=== PATIENT | female | born 1955 | race Caucasian/White ===

== ENCOUNTER 2020-08-21 18:07 | Observation (INO) | payer MEDICARE, OTHER ==
[~2020-08-21 18:07] MED LIST: Iopamidol-370 76% 500 ML 1 ML ONE
[2020-08-21] MEDS ORDERED: Ketorolac Tromethamine 30 MG/ML VIAL ONE (18:16)
[2020-08-21] MEDS ORDERED: Morphine 4 MG/ML VIAL ONE ×2 (18:16→20:55)
[2020-08-21] MEDS ORDERED: Ondansetron PF 4 MG/2 ML Vial ONE (18:18)
--- NOTE | 2020-08-21 18:27 | RAD ---
Exam: Chest one view HISTORY:Trauma Comparison: None FINDINGS: Cardiac silhouette: Normal Aorta: Unremarkable Pulmonary vessels: Normal Costophrenic angles: Clear LUNGS: No masses or consolidation. Pneumothorax: No pneumothorax on this supine projection. Osseous abnormalities: None IMPRESSION: No acute cardiopulmonary process.
[2020-08-21 18:59] LABS: #Eosinphils 0.1 thou/uL (0.0-0.7); #Lymphocytes 1.7 thou/uL (1.20-3.40); #Monocytes 0.6 thou/uL (0.11-0.59); #Neutrophils 7.3 thou/uL (1.40-6.50); %Basophils 0.4 % (0.0-1.0); %Lymphocytes 17.8 % (21.0-51.0); %Monocytes 5.8 % (0.0-10.0); Hemoglobin 14.7 g/dL (12.0-16.0); Mean Corpuscular HGB CONC 33.8 g/dL (32.0-36.0); Mean Corpuscular Hemoglobin 29.3 pg (27.0-31.0); Mean Corpuscular Volume 86.9 fL (78.0-98.0); Mean Platelet Volume 7.5 fL (7.4-10.4); Platelet Count 258 thou/uL (130-400); White Blood Cell (WBC) Count 9.7 thou/uL (4.8-10.8)
--- NOTE | 2020-08-21 19:08 | CT ---
CT BRAIN: Date: 08-21-2020 PROVIDED CLINICAL HISTORY: Trauma FINDINGS: The ventricular system appears normal in size and morphology. There is no evidence for intracranial h emorrhage or mass effect. The extracranial soft tissues and osseous structures demonstrate no evidenc e for traumatic abnormality. IMPRESSION: No evidence for intracranial hemorrhage or mass effect. POS: [facility]
--- NOTE | 2020-08-21 19:11 | CT ---
Exam: CT cervical spine without contrast HISTORY: Trauma. Pain. COMPARISON: None FINDINGS: No craniocervical dissociation. Appropriate alignment of the lateral masses of C1 and C2. Intact odon toid process Appropriate alignment of the facets. Straightening of normal cervical lordosis presumed to be due to patient position, muscle spasm or cer vical collar. Soft tissue neck structures: No mass, lymphadenopathy or hematoma. No prevertebral soft tissue swelli ng. Incidental 1.5 x 2.2 cm left thyroid hypodensity, incompletely evaluated Upper mediastinum and lung apices: Unremarkable Central spinal canal: Neural foramina and central spinal canal are patent. There is moderate loss of disc space height at C4-C5 and C5-C6. There is multilevel facet arthropathy. Evaluation is limited by technique Vertebral bodies: Cervical spine vertebral body height is maintained. No vertebral body fracture. The re is a right C7 transverse process fracture. There is a remote injury involving the inferior endplate of T1 with sclerosis. There is a nondisplaced left first rib fracture. Trace left pneumothorax. IMPRESSION: 1. Right C7 transverse process fracture. 2. Chronic changes involving inferior endplate of T1 3. Left first rib fractures. Trace left apical pneumothorax. Results study discussed with Dr. Gutierrez 08/21/2020 at 7:06 PM Code CR
[2020-08-21 19:18] LABS: ALT (SGPT) 27 U/L (8-55); AST (SGOT) 30 U/L (5-34); Albumin 4.2 g/dL (3.4-4.8); Alkaline Phosphatase 88 U/L (40-110); Anion Gap 16 mmol/L (10-20); BUN (Urea Nitrogen) 9 mg/dL (9.8-20.1); Bilirubin, Total 0.9 mg/dL (0.2-1.2); Calc. Creatinine Clearance 0 mL/min (70-130); Calcium 9.3 mg/dL (7.8-10.44); Carbon Dioxide 25 mmol/L (23-31); Chloride 103 mmol/L (98-107); Globulin 3.1 g/dL (2.4-3.5); Glucose 135 mg/dL (80-115); Potassium 3.9 mmol/L (3.5-5.1); Protein, Total 7.3 g/dL (6.0-8.3); Sodium 140 mmol/L (136-145)
--- NOTE | 2020-08-21 19:30 | CT ---
CT ABDOMEN AND PELVIS WITH IV CONTRAST LIMITED CT LUMBAR SPINE: Date: 08-21-2020 PROVIDED CLINICAL HISTORY: Trauma FINDINGS: The visualized lung bases are free of significant opacity. The solid abdominal organs demonstrate no evidence for traumatic abnormality. There is a small hiatal hernia. Changes of prior cholecystectomy. No bowel dilatation, inflammatory f at stranding, free fluid or free air apparent. Evaluation of the pelvis is limited due to beam harden ing artifact from right hip arthroplasty. There is reticulation of the subcutaneous adipose layer of the right gluteal region compatible with b ruising or edema. There is no evidence for fracture. Coronal and sagittal lumbar spine reconstructions demonstrate no evidence for fracture or traumatic s ubluxation. IMPRESSION: No evidence for traumatic abnormality. POS: [facility]
[2020-08-21 20:24] LABS: Bacteria/HPF None Seen HPF (None Seen); Bilirubin Negative (Negative); Blood, Urine Negative (Negative); Calcium Oxalate Crystals 2+ HPF (None Seen); Clarity Clear (Clear); Glucose, Urine (Dipstick) Normal (Negative); Ketone, Urine Negative (Negative); Leukocyte 25 Leu/uL (Negative); Nitrite Negative (Negative); Protein, Urine (Dipstick) 10 mg/dL (Neg-Trace); RBC/HPF 0-3 HPF (0-3); Squamous Epithelial 0-3 HPF (0-3); Urobilinogen Normal mg/dL (Less than 2); WBC/HPF 0-3 HPF (0-3); pH, Urine 6.5 (5.0-9.0)
[2020-08-21 20:25] LABS: Specific Gravity, Urine Greater than 1.060 (1.002-1.036)
[2020-08-21 20:51] LABS: PTT 25.8 sec (22.9-36.1); Prothrombin Time 13.1 sec (12.0-14.7)
[2020-08-21] MEDS ORDERED: Ondansetron PF 4 MG/2 ML Vial IVP PRN (21:24)
[2020-08-21] MEDS ORDERED: Morphine 2 MG/ML VIAL SLOW IVP PRN (21:24)
[2020-08-21] MEDS ORDERED: Insulin Regular 300 UNITS/3 ML VIAL SC PRN (21:24)
[2020-08-21] MEDS ORDERED: Dextrose 5% in Water 1,000 ML IV PRN (21:24)
[2020-08-21] MEDS ORDERED: hydrALAZINE 20 MG/ML VIAL SLOW IVP PRN (21:24)
[2020-08-21] MEDS ORDERED: Dextrose 50% Abboject 50 ML SYRINGE SLOW IVP PRN (21:24)
[2020-08-21] MEDS ORDERED: traMADol HCl 50 MG TAB PO PRN (21:27)
[2020-08-21] MEDS ORDERED: Cyclobenzaprine 10 MG TAB PO PRN (21:27)
--- NOTE | 2020-08-21 21:45 | CT ---
Exam: Chest CT without contrast HISTORY: Trauma. Pain. Patient fell off the medial. FINDINGS: Lower neck and axilla: No posttraumatic change. Mediastinum: Limited evaluation by the absence of IV contrast. No mass, lymphadenopathy or hematoma HEART: Normal size Aorta: Normal caliber. No periaortic fat stranding Subdiaphragmatic structures: No posttraumatic change Small hiatal hernia is identified Trachea and central bronchi are patent There are dependent atelectatic changes. No mass, consolidation or contusion. Trace left apical pneumothorax. Thoracic spine is unremarkable. The changes along the inferior endplate of T1. Sternum is unremarkabl e. Clavicles and scapula are intact. No evidence of a right rib fracture. Left first rib fracture is redemonstrated. Additional left rib fractures are not appreciated. IMPRESSION: 1. Left first rib fracture. Trace left apical pneumothorax.
--- NOTE | 2020-08-21 21:51 | RAD ---
Exam:2 views right femur HISTORY: Pain. Trauma. COMPARISON: None FINDINGS: Uncomplicated right hip arthroplasty. No perihardware lucency. No fracture. IMPRESSION: No fracture.
[2020-08-21 22:26] VITALS: BMI 29.3
[2020-08-21] MEDS ORDERED: Ibuprofen 200 MG TAB ONE (22:35)
[2020-08-21] MEDS: Ibuprofen 200 MG TAB PO SCH (22:38)
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
[2020-08-22] MEDS: Acetaminophen 500 MG TAB PO SCH ×3 (00:11→11:47)
[2020-08-22] MEDS: traMADol HCl 50 MG TAB PO PRN ×3 (00:12→11:49)
[2020-08-22 05:42] LABS: #Basophils 0.1 thou/uL (0.0-0.2); #Eosinphils 0.1 thou/uL (0.0-0.7); #Lymphocytes 2.1 thou/uL (1.20-3.40); #Monocytes 0.7 thou/uL (0.11-0.59); #Neutrophils 3.9 thou/uL (1.40-6.50); %Eosinophils 1.8 % (0.0-10.0); %Lymphocytes 30.7 % (21.0-51.0); %Monocytes 10.2 % (0.0-10.0); %Neutrophils 56.3 % (42.0-75.0); Hemoglobin 12.7 g/dL (12.0-16.0); Mean Corpuscular HGB CONC 33.3 g/dL (32.0-36.0); Mean Corpuscular Hemoglobin 29.2 pg (27.0-31.0); Mean Corpuscular Volume 87.8 fL (78.0-98.0); Mean Platelet Volume 7.3 fL (7.4-10.4); Platelet Count 196 thou/uL (130-400); Red Blood Cell (RBC) Count 4.34 mill/uL (4.20-5.40)
[2020-08-22] MEDS: Ibuprofen 200 MG TAB PO SCH ×2 (05:59→14:25)
[2020-08-22 06:07] LABS: Anion Gap 12 mmol/L (10-20); BUN (Urea Nitrogen) 9 mg/dL (9.8-20.1); Calc. Creatinine Clearance 103 mL/min (70-130); Calcium 8.2 mg/dL (7.8-10.44); Carbon Dioxide 26 mmol/L (23-31); Chloride 104 mmol/L (98-107); Glucose 105 mg/dL (80-115); Magnesium 1.9 mg/dL (1.6-2.6); Potassium 3.5 mmol/L (3.5-5.1); Sodium 138 mmol/L (136-145)
[2020-08-22 06:34] LABS: SARS-CoV-2 MS2 Positive; SARS-CoV-2 N Gene Negative; SARS-CoV-2 S Gene Negative; SARS-CoV-2 by NAA Not Detected (NotDetected); SARS-CoV-2 orf1ab Negative
[2020-08-22] MEDS ORDERED: Polyethylene Glycol 3350 17 GM Packet PO SCH (09:00)
[2020-08-22] MEDS ORDERED: Famotidine 20 MG TAB PO SCH (09:00)
[2020-08-22] MEDS ORDERED: Senokot S 8.6-50 MG TAB PO SCH (09:00)
[2020-08-22] MEDS ORDERED: FLU VACC QS2020-21(6MOS UP)/PF 60 MCG/0.5 ML SYRINGE IM ONE (09:00)
[2020-08-22] MEDS: Gabapentin 100 MG CAP PO SCH ×2 (09:17→14:25)
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
[2020-08-22 12:59] VITALS: BP 106/72; TEMP 97.6
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
== END 2020-08-22 15:05 | disposition home or self-care (01) ==
LOC: ERS 18:07 → ERHOLD 21:27 → SURG A 23:26
PROVIDERS: ADMIT Specialist; ATTEND Specialist
DX: S27.0XXA Traumatic pneumothorax, initial encounter (principal); S22.32XA Fracture of one rib, left side, initial encounter for closed fracture; S12.600A Unspecified displaced fracture of seventh cervical vertebra, initial encounter for closed fracture; E11.9 Type 2 diabetes mellitus without complications; I10 Essential (primary) hypertension; Z79.84 Long term (current) use of oral hypoglycemic drugs; Z79.899 Other long term (current) drug therapy; Z88.8 Allergy status to other drugs, medicaments and biological substances; Z20.828 Contact with and (suspected) exposure to other viral communicable diseases
CPT/HCPCS: 70450; 71045 ×2; 71250; 72125; 73552; 74177; 80048; 80053; 82962 ×2; 83735; 84100; 85025 ×2; 85610; 85730; 96374; 96375; 96376; 97139 ×4; 99285; U0003; 36415; 36416; 81003; 81015; 87635; G0378; G0390; J1885; J2270; J2405; Q9967